=== PATIENT | female | born 1995 | race Hispanic/Latino ===

== ENCOUNTER 2024-06-04 21:36 | Emergency (ER) | payer OTHER ==
[~2024-06-04] VITALS: Ht 154.9 cm; Wt 84.4 kg
[2024-06-04 22:09] LABS: RAPID GROUP A STREP negative (NEGATIVE)
[2024-06-04 22:11] LABS: SARS-CoV-2, RNA, NAAT NEGATIVE SARS CoV-2 (NEGATIVE)
[2024-06-04 22:17] LABS: INFLUENZA TYPE B Negative For Type B (NEGATIVE)
[2024-06-04 22:23] LABS: INFLUENZA TYPE A Positive For Type A (NEGATIVE)
[2024-06-04] MEDS: acetaMINOPHEN 500 MG TABLET PO ONE (22:33)
--- NOTE | 2024-06-04 23:50 | ERN ---
ED Note History of Present Illness Stated Complaint: C/O COUGH WITH PHLEGM, SORE THROAT, FEVER,CONGESTI Chief Complaint: Cough Time Seen by MD: 21:45 Time Seen by Midlevel: 21:45 Dictation: The patient is a 29-year-old female with no past medical history who presents to the emergency department with complaints of sore throat, cough, nasal congestion, fevers, chest discomfort with coughing that is worse with palpation onset yesterday. Allergies: Coded Allergies: No Known Allergies (Verified Allergy, Unknown, 12/19/15) Home Meds No Active Prescriptions or Reported Meds Past Medical History Past Medical History: No Pertinent History Surgical History: None LMP: May 07, 2024 RN Note Reviewed/Agreed w/PFSH: Yes Review of System Dictation Constitutional: Negative for chills, and weight loss positive for fever Eyes: Negative for injury, pain,redness, and discharge ENT: Negative for injury,pain or swelling Cardiovascular: Negative for palpitations, and edema positive for chest pain Respiratory: Negative for shortness of breath, and wheezing, positive for cough Abdomen/GI: Negative for abdominal pain, nausea, vomiting, diarrhea, and constipation Back: Negative for injury and pain : Negative for injury, bleeding and discharge MS/Extremity: Negative for injury and deformity Skin: Negative for rash, and discoloration Neuro: Negative for headache, weakness, numbness, tingling, and seizure Psych: Negative for suicide ideation, homicidal ideation, and hallucinations Initial Vital Sign VS Vital Signs Date Time Temp Pulse Resp B/P (MAP) Pulse Ox O2 Delivery O2 Flow Rate FiO2 06/04/24 21:40 99.0 107 20 146/84 100 Room Air 06/04/24 23:15 0 21 Physical Exam Dictation Vital Signs reviewed General Appearance: Alert, oriented x 3, no acute distress, well developed, nourished. Head and Face: non-traumatic. Eyes: PERRL, pink conjunctivas, eyelid no trauma, anterior chamber with arcus senilis. Ears: Pinnas intact and no signs of trauma or erythema ear canals clear and no discharge TM no erythema Nose: No discharge, no bleeding. Oropharynx: Mouth normal, tongue pink. pharynx clear,no erythema, tonsils no exudates, no abscesses noted, mucous membrane moist Neck: Supple, non-tender, no thyromegaly, no masses, no JVD, no bruits Breast:Deferred Chest:+ tenderness, no crepitus, no paradoxical movement, no retractions Lungs:Clear, well-ventilated, symmetric, no rales, no wheezing, no rhonchi, no stridor, good breath sounds bilaterally Heart: Regular rate, regular rhythm, no murmur, no gallops Vascular: no peripheral edema, Abdomen: Soft, positive bowel sounds, nondistended, no guarding, nontender, no rebound, no masses no hepatomegaly, no splenomegaly, no Mon's sign, no hernias. Rectal: Deferred Genital: Deferred Neurological: Normal speech, motor function intact, sensory function intact Musculoskeletal: Neck nontender, full range of motion, back nontender, full range of motion, Extremities: nontender, full range of motion Skin: Color pink, dry, no turgor, no rash, no lacerations, no abrasions, no contusions. Lymphatic: Deferred Results (Laboratory/Radiology) Laboratory/Radiology Laboratory Tests Test 06/04/24 21:42 06/04/24 22:40 Influenza Type A Antigen Positive For Type A Influenza Type B Antigen Negative For Type B SARS-CoV-2, RNA, NAAT NEGATIVE SARS CoV-2 Group A Streptococcus Rapid negative (NEGATIVE) Urine HCG, Qualitative NEGATIVE (NEGATIVE) Labs Reviewed?: Yes ED Course ED Course Orders Procedure Category Date Status Time Covid Rna Naat LAB 06/04/24 Complete 21:39 Influenza Type A & B, LAB 06/04/24 Complete Rapid 21:39 Rapid (Group A Strep) LAB 06/04/24 Complete 21:39 Acetaminophen 500mg PHA 06/04/24 Complete Tab (Tylenol 500mg T 22:30 ,Urine Test LAB 06/04/24 Complete 22:35 Chest 1vw RAD 06/04/24 Taken 22:35 Oseltamivir Phosphate PHA 06/05/24 Verified (Tamiflu) 00:00 Current Medications Medications (Trade) Dose Ordered Sig/Renu Route PRN Reason Start Time Stop Time Status Last Admin Dose Admin Acetaminophen (TYLenol 500MG TAB) 1,000 mg ONCE ONCE PO 06/04/24 22:30 06/04/24 22:31 DC 06/04/24 22:33 Vital Signs Date Time Temp Pulse Resp B/P (MAP) Pulse Ox O2 Delivery O2 Flow Rate FiO2 06/04/24 23:15 99.0 101 18 138/87 98 Room Air* 0 21 06/04/24 21:40 99.0 107 20 146/84 100 Room Air Medical Decision Making MDM The patient is a 29-year-old female with no past medical history who presents to the emergency department with complaints of sore throat, cough, nasal congestion, fevers, chest discomfort with coughing that is worse with palpation onset yesterday. Serology positive for flu A. Patient will be giving Tamiflu. Patient continues in no acute distress. Clear lung sounds. Patient with no comorbidities. Nontoxic appearance. Differential diagnosis: Upper respiratory infection, pneumonia, pneumothorax Need for hospitalization: Patient does not meet criteria for hospitalization. There are no social concerns with this patient. DX & DISP Disposition: Discharge Departure Impression: Primary Impression: Influenza A Condition: Stable Scripts Oseltamivir Phosphate (Tamiflu) 75 Mg Cap 75 MG PO BID for 5 Days, #10 CAP Prov: ROCÍO SAUCEDA 06/04/24 Additional Instructions: Please follow up with PCP in 1-2 days. If symptoms worsen please return to ER. FOLLOW-UP WITH PRIMARY CARE PROVIDER IN 1 TO 2 DAYS. TAKE MEDICATIONS DIRECTED HERE IN THE EMERGENCY ROOM. OKAY TO CONTINUE HOME MEDICATIONS UNLESS OTHERWISE DISCUSSED DURING YOUR VISIT IN THE EMERGENCY ROOM TODAY. RETURN TO YOUR NEAREST EMERGENCY ROOM IF SYMPTOMS WORSEN OR IF THERE IS NO IMPROVEMENT. CALL 911 IF YOU NEED IMMEDIATE ASSISTANCE. TAKE TYLENOL OR MOTRIN [id number] NEEDED AND IF NO CONTRAINDICATIONS ARE PRESENT. INCREASE ORAL HYDRATION. A WOUND CULTURE OR URINE CULTURE WAS ORDERED HERE IN THE EMERGENCY ROOM DEPARTMENT PLEASE FOLLOW-UP WITH PRIMARY CARE PROVIDER AND ADVISE THEM TO GET REPEAT PORTS FROM OUR FACILITY. IF YOU HAD ANY SOFYA WRAP/SPLINTS THAT WERE APPLIED HERE, PLEASE DO NOT REMOVE THEM UNTIL YOU SEE YOUR PRIMARY CARE OR SPECIALTY. Time of Disposition: 23:55 I have reviewed the case, and I agree with, Diagnosis and Plan ROCÍO SAUCEDA Jun 04, 2024 23:50
[2024-06-04] MEDS ORDERED: OSEL75 PO (23:56)
[2024-06-05] VITALS: BP 134/78; PULSE 99; RESP 18; TEMP 98.7; O2SAT 100
[2024-06-05] MEDS: OSELTAMIVIR PHOSPHATE 75 MG CAP PO ONE (00:06)
--- NOTE | 2024-06-05 08:52 | HMCIMG ---
Exam Type: CHEST 1VW Clinical Information: SHORTNESS OF BREATH Comparison: None Findings: The lungs are clear of infiltrates. The heart is normal in size. The bony and soft tissue structures of the chest are unremarkable. Impression: Clear lungs.
== END 2024-06-05 00:10 | disposition home or self-care (01) ==
LOC: EDH 21:36
DX: J10.1 Influenza due to other identified influenza virus with other respiratory manifestations (principal); Z20.822 Contact with and (suspected) exposure to COVID-19
CPT/HCPCS: 71045; 81025; 87635; 87804; 87880; 99284